=== PATIENT | female | born 1970 | race Caucasian/White ===

== ENCOUNTER 2017-06-22 07:59 | Emergency (ER) | payer OTHER ==
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
[2017-06-22] MEDS ORDERED: Diph,Pert(Acell),Tet Vac 0.5 ML SYR IM ONE (08:25)
[2017-06-22] MEDS ORDERED: SILVER SULFADIAZINE 25 GM CREAM TOP ONE (08:26)
== END 2017-06-22 09:10 | disposition home or self-care (01) ==
LOC: ER 07:59
DX: T23.251A Burn of second degree of right palm, initial encounter (principal); T23.211A Burn of second degree of right thumb (nail), initial encounter; T23.232A Burn of second degree of multiple left fingers (nail), not including thumb, initial encounter; X13.1XXA Other contact with steam and other hot vapors, initial encounter; Y93.G3 Activity, cooking and baking
CPT/HCPCS: 16020; 90715; 96372; 99283

== ENCOUNTER 2017-11-15 12:08 | Emergency (ER) | payer OTHER ==
[2017-11-15] MEDS ORDERED: 0.9 % SODIUM CHLORIDE 1000ML 1,000 ML IV PRN (12:31)
[2017-11-15] MEDS ORDERED: ASPIRIN 81 MG CHEWABLE TABLET PO ONE (12:31)
--- NOTE | 2017-11-15 12:41 | Emergency Department Record ---
History of Present Illness - General Chief complaint: Pain Stated complaint: BREAST PAIN LEFT Time Seen by Provider: 11/15/17 12:19 Source: Patient, RN notes reviewed Mode of Arrival: Ambulatory - History of Present Illness Initial comments: 2 weeks of chest wall pain and sharp and worse with palpation and motion of her shoulder. Primary Dr. Figueroa worse with palpation and rotation of the shoulders and she has a new job and lifting things differently Onset/Timin -: Week(s) Location: Left, Other Improves with: Nothing Worsens with: Nothing Associated Symptoms: Denies other symptoms - Related Data Previous Rx's Medication Instructions Recorded Naproxen [Naprosyn] 500 mg PO Q12H #20 tab. 11/15/17 Allergies Allergy/AdvReac Type Severity Reaction Status Date / Time No Known Drug Allergies Allergy Verified 11/15/17 12:24 Travel Screening - Travel/Exposure Within Last 30 Days Have you traveled within the last 30 days?: No - Travel/Exposure Within Last Year Have you traveled outside the [place] in the last year?: No - Additonal Travel Details Have you been exposed to anyone with a communicable illness?: No - Travel Symptoms Symptom Screening: None Review of Systems Reviewed: No additional complaints except as noted below Constitutional: Reports: As per HPI. Denies: Chills, Fever, Malaise, Night sweats, Weakness, Weight change Eyes: Reports: As per HPI. Denies: Eye discharge, Eye pain, Photophobia, Vision change ENT: Reports: As per HPI. Denies: Congestion, Dental pain, Ear pain, Epistaxis , Hearing loss, Throat pain Respiratory: Reports: As per HPI. Denies: Cough, Dyspnea, Hemoptysis, Stridor, Wheezes Cardiovascular: Reports: As per HPI, Chest pain (pain is sharp and reproducible on palpation). Denies: Arrhythmia, Dyspnea on exertion, Edema, Murmurs, Orthopnea, Palpitations, Paroxysmal nocturnal dyspnea, Rheumatic Fever, Syncope Endocrine: Reports: As per HPI. Denies: Fatigue, Heat or cold intolerance, Polydipsia, Polyuria Gastrointestinal: Reports: As per HPI. Denies: Abdominal pain, Constipation, Diarrhea, Hematemesis, Hematochezia, Melena, Nausea, Vomiting Genitourinary: Reports: As per HPI. Denies: Abnormal menses, Discharge, Dyspareunia, Dysuria, Frequency, Hematuria, Incontinence, Retention, Urgency Musculoskeletal: Reports: As per HPI. Denies: Arthralgia, Back pain, Gout, Joint swelling, Myalgia, Neck pain Skin: Reports: As per HPI. Denies: Bruising, Change in color, Change in hair/ nails, Lesions, Pruritus, Rash Neurological: Reports: As per HPI. Denies: Abnormal gait, Confusion, Headache, Numbness, Paresthesias, Seizure, Tingling, Tremors, Vertigo, Weakness Psychiatric: Reports: As per HPI. Denies: Anxiety, Auditory hallucinations, Depression, Homicidal thoughts, Suicidal thoughts, Visual hallucinations Hematological/Lymphatic: Reports: As per HPI. Denies: Anemia, Blood Clots, Easy bleeding, Easy bruising, Swollen glands Past Medical History - SOCIAL HISTORY Smoking Status: Never smoker Alcohol Use: None Drug Use: None - RESPIRATORY Hx Respiratory Disorders: No - CARDIOVASCULAR Hx Cardio Disorders: No - NEURO Hx Neuro Disorders: No - GI Hx GI Disorders: Yes Hx Wt Loss/Wt Gain: Yes Comment:: gastric bypass - Hx Genitourinary Disorders: No - ENDOCRINE Hx Endocrine Disorders: No - MUSCULOSKELETAL Hx Musculoskeletal Disorders: No - PSYCH Hx Psych Problems: No - HEMATOLOGY/ONCOLOGY Hx Hematology/Oncology Disorders: No Family Medical History Any Significant Family History?: Yes Family Hx Comment (NOT TO BE USED IN PLACE OF ITEMS BELOW): mom breast cancer Hx Cancer: Father, Mother Physical Exam - General General Appearance: Alert, Oriented x3, Cooperative, No acute distress - Head Head exam: Normal inspection - Eye Eye exam: Normal appearance, PERRL Pupils: Normal accommodation - ENT ENT exam: Normal exam, Mucous membranes moist, Normal external ear exam, Normal orophraynx, TM's normal bilaterally Ear exam: Normal external inspection. negative: External canal tenderness Nasal Exam: Normal inspection. negative: Discharge, Sinus tenderness Mouth exam: Normal external inspection, Tongue normal Teeth exam: Normal inspection. negative: Dental caries Throat exam: Normal inspection. negative: Tonsillar erythema, Tonsillar exudate - Neck Neck exam: Normal inspection, Full ROM. negative: Tenderness - Respiratory Respiratory exam: Normal lung sounds bilaterally. negative: Respiratory distress - Cardiovascular Cardiovascular Exam: Regular rate, Normal rhythm, Normal heart sounds, Other ( pain is reproducible with palpation and rotation of the shoulders) - GI/Abdominal GI/Abdominal exam: Soft, Normal bowel sounds. negative: Tenderness - Rectal Rectal exam: Deferred - exam: Deferred - Extremities Extremities exam: Normal inspection, Full ROM, Normal capillary refill. negative: Tenderness - Back Back exam: Reports: Normal inspection, Full ROM. Denies: Muscle spasm, Rash noted, Tenderness - Neurological Neurological exam: Alert, Normal gait, Oriented X3, Reflexes normal - Psychiatric Psychiatric exam: Normal affect, Normal mood - Skin Skin exam: Dry, Intact, Normal color, Warm Course Vital Signs 11/15/17 12:15 Temperature 97.8 F Pulse Rate 78 Respiratory 16 Rate Blood Pressure 134/74 Pulse Ox 100 - Reevaluation(s) Reevaluation #1: offered to due a breast exam with nurse and she said she would rather have her priamry due that. 11/15/17 13:51 Medical Decision Making - Data Complexity MDM Data: Labs Ordered and/or Reviewed (cardiac enzymes neg), X-Ray Ordered and/ or Reviewed (right sided fat pad and possible infiltrate right middle lobe but no symptoms of cough ), EKG Ordered and/or Reviewed (ekg no acute changes and nsr) - Lab Data Result diagrams: 11/15/17 12:46 11/15/17 12:46 Disposition Clinical Impression: Chest wall pain Disposition: Home, Self-Care Condition: (1) Good Instructions: Costochondritis (ED) Additional Instructions: follow up with Dr. Figueroa next week naprosyn 500 mg twice a day follow up with primary to repeat mamogram if due and obtain a breast exam Prescriptions: Naproxen [Naprosyn] 500 mg PO Q12H #20 tab.dr Forms: Patient Portal Access Time of Disposition: 13:37 Quality - Quality Measures Quality Measures: N/A - Blood Pressure Screening Does Patient Have Any of the Following: No Blood Pressure Classification: Pre-Hypertensive BP Reading Systolic Measurement: 134 Diastolic Measurement: 74 Screening for High Blood Pressure: < Pre-Hypertensive BP, F/U Documented > [ G8950] Pre-Hypertensive Follow-up Interventions: Referral to alternative/primary care provider.
[2017-11-15 12:52] LABS: BASO % 0.2 % (0-6); EOS % 1.9 % (0-6); GRAN % 62.7 % (47-80); HEMATOCRIT 42.2 % (35.0-47.0); HEMOGLOBIN 13.5 gm/dl (11.6-16.0); LYMPH % 26.6 % (16-45); MEAN CELL VOLUME 91.5 fl (81-97); MEAN CORPUSCULAR HEMOGLOBIN 29.3 pg (27-33); MONO % 8.6 % (0-9); PLATELET COUNT 328 K/uL (130-400); RED BLOOD COUNT 4.61 M/uL (3.80-5.40); RED CELL DISTRIBUTION WIDTH 13.5 % (11.5-14.5); WHITE BLOOD COUNT W/O DIFF 6.4 K/uL (4.2-12.2)
[2017-11-15 13:07] LABS: BLOOD UREA NITROGEN 16 mg/dL (6-20); CREATININE 0.7 mg/dL (0.5-0.9); EST GLOMERULAR FILTRATION RATE > 60 mL/min
[2017-11-15 13:10] LABS: GLUCOSE,RANDOM 117 mg/dL (74-109)
[2017-11-15 13:16] LABS: CKMB 2.4 ng/mL (<3.77)
--- NOTE | 2017-11-16 14:32 | RADIOLOGY REPORT ---
EXAM: CHEST, TWO VIEWS HISTORY: CHEST PAIN UPPER LEFT CHEST FOR TWO WEEKS. TECHNIQUE: PA and lateral views of the chest were obtained. Comparison: None. FINDINGS: The heart size is at about the upper limits of normal. There is some density at the right base. Much of this is likely just a prominent fat pad although a small amount of infiltrate in the right middle lobe is difficult to exclude. Comparison with any old films would be useful in this regard. The left lung appears expanded and clear. No pleural effusion or pneumothorax evident. IMPRESSION: 1. PROMINENT FAT PAD AT THE RIGHT CARDIOPHRENIC ANGLE. THERE MAY BE A SMALL AMOUNT OF INFILTRATE IN THE RIGHT MIDDLE LOBE WELL. 2. ELSEWHERE THE CHEST X-RAY APPEARS NEGATIVE. JOB NUMBER: [id number] MTDD
== END 2017-11-15 14:01 | disposition home or self-care (01) ==
LOC: ER 12:08
DX: R07.89 Other chest pain (principal); Z98.84 Bariatric surgery status
CPT/HCPCS: 71046; 80048; 82553; 84484; 85025; 93005; 93010; 99284